=== PATIENT | female | born 1990 | race Caucasian/White ===

== ENCOUNTER 2019-03-12 16:51 | Inpatient (IN) ==
[2019-03-12] MEDS ORDERED: ADENOCARD IV ONE ×2 (17:15→21:00)
--- NOTE | 2019-03-12 17:38 | PROVIDER DOCUMENTATION ---
HPI-General Adult - General Chief Complaint: Palpitations Stated Complaint: HEART RACING Time Seen by Provider: 03/12/19 17:25 Source: patient Allergies/Adverse Reactions: Patient Allergies Allergy/AdvReac Type Severity Reaction Status Date / Time almond Allergy SHORTNESS Verified 03/12/19 17:33 OF BREATH Home Medications: Home Medication List Medication Instructions Recorded Confirmed Last Taken Type Fenofibric Acid (Choline) 135 mg PO DAILY 02/28/19 03/12/19 03/11/19 History [Fenofibric Acid] - History of Present Illness -Gen Adult Nature of Presenting Problems: Pt is a 28yo female who presents with palpitations for the past 2 days. She has no hx of SVT. She denied chest pain or shortness of breath. Location of Pain/Injury: reports: head Onset/Duration: reports: other (yesterday) Associated Symptoms: reports: other (palpations). denies: chest pain, shortness of breath Review of Systems - Adult - REVIEW OF SYSTEMS - ADULT Constitutional: reports: other (sweats) Eyes: denies: blurred vision Ears, Nose, Mouth & Throat: reports: throat pain Cardiovascular: reports: irregular heart rate Respiratory: denies: shortness of breath Gastrointestinal: reports: no symptoms reported. denies: abdominal pain Genitourinary: denies: dysuria Musculoskeletal: denies: back pain Neurological: reports: other (shakes) Psychiatric: reports: other (decreased attention) Endocrine: reports: excessive sweating Hematologic/Lymphatic: reports: other (no bleeding) Past History - Adult - PAST MEDICAL HISTORY-ADULT Review of Records: reports: Old Records Reviewed Major Childhood Illnesses: reports: history unknown Cardiovascular: reports: HTN, hyperlipidemia Respiratory: reports: denies history Gastrointestinal: reports: denies history Obstetrical/Gynecological: reports: denies history Genitourinary: reports: denies history Musculoskeletal: reports: denies history Neurological: reports: denies history Endocrine/Immune: reports: denies history Other Conditions: reports: denies history - PRIOR SURGERIES/PROCEDURES Surgical/Procedure History: reports: hysterectomy, BTL - PRIOR HOSPITALIZATIONS Prior Hospitalizations: reports: none - IMMUNIZATION STATUS Childhood Immunizations: See Nurse Assessment Flu Vaccine: See Nurse Assessment - FAMILY HISTORY Family History: HTN, other (CAD) - SOCIAL HISTORY Smoking: denies Substance Use: none/never Alcohol Use Frequency: never Physical Exam-General - PHYSICAL EXAM-ADULT Exam Limited by: Obesity Initial Vital Signs Reviewed: Yes - CONSTITUTIONAL General Appearance: appears well, alert, obese - EYES Eyes: negative: scleral icterus - HEAD, EARS, NOSE, MOUTH & THROAT HENMT: normocephalic/atraumatic, moist mucous membranes - NECK Neck: normal inspection - RESPIRATORY Respiratory: normal breath sounds - CARDIOVASCULAR Cardiovascular: tachycardia, other (1+ bilateral lower extremity edema) - GASTROINTESTINAL (ABDOMEN) Abdominal Exam: non tender, soft - SKIN Integumentary: normal color - NEUROLOGIC Neurologic: grossly normal - PSYCHIATRIC Psych/Mental Status: normal mood/affect Progress - PLAN OF CARE/RESULTS Progress/Plan/Lab Results: Vital Signs - 8 hr 03/12/19 17:30 Temperature 98.1 F Pulse Rate 224 H Respiratory Rate 20 Blood Pressure 162/84 O2 Sat by Pulse Oximetry 97 Original telemetry show tachycardia concerning for SVT. EKG at 17:13 showing SVT with PVCs. Patient had pads applied and had adenosine treatment x1 with 6mg IV push at approximately 17:13 with conversion noted immediately and repeat EKG noting sinus tachycardia at 17:16. The patient rhythm converted to sinus tachycardia with new rate of 119. The patient tolerated the procedure well, and IVF were also started. Result Diagrams: 03/12/19 17:17 03/12/19 17:17 - EKG 1 EKG Interpretation (*Must complete 3 of following elements*): Abnormal Rate: 219 Rhythm: SVT [place]: normal QRS: other (narrow 84) ST Wave: non-specific ST changes Comments: SVT 2 EKG Interpretation (*Must complete 3 of following elements*): Abnormal Rate: 119 Rhythm: Sinus tachycardia [place]: normal QRS: normal [place] Interval: normal ST Wave: normal Prior EKG Comparison: changes noted Comments: Improved from SVT to sinus tachycardia after adenosine Departure - Departure Date of Disposition Decision: 03/12/19 Time of Disposition Decision: 19:37 DIAGNOSIS: Supraventricular tachycardia Disposition: ADMITTED INPATIENT 09 Certified Medical Emergency: Emergent Condition: Good Referrals and Follow-Ups: Justin Thibodeaux Jr, MD [Primary Care Provider] - - Critical Care Note This patient required my direct & personal management of CC.: Yes Attestation - Physician/ KHARI Attestation Patient care was provided by Advanced Practice Provider:: No The physician spent face to face time with patient:: Yes Advanced Practice Provider documentation review:: Supervising physician onsite and consulted in the evaluation and care of this patient. The physician did have a face to face encounter with the patient.
[2019-03-12 18:18] LABS: BASO# 0.08 X1000 (0.0-0.2); BASO% 0.7 % (0.0-0.8); EOS# 0.15 X1000 (0.0-0.7); EOS% 1.2 % (0.0-10.0); HEMATOCRIT 42.6 % (37.0-47.0); HEMOGLOBIN 14.2 g/dL (12.0-16.0); IMM GRAN# 0.02 X1000 (0.0-0.04); IMM GRAN% 0.2 % (0.0-0.5); LYMPH# 4.22 X1000 (1.2-3.4); MCH 30.2 PG (27-31); MCHC 33.3 g/dL (33-37); MCV 90.6 FL (81-99); MONO# 0.82 X1000 (0.11-0.59); MONO% 6.8 % (1.7-9.3); MPV 8.7 FL (7.4-10.4); NEUT# 6.76 X1000 (1.4-6.5); NEUT% 56.1 % (42.2-75.2); PLT 491 X1000 (130-400); RDW 12.6 % (11.5-14.5); WBC 12.05 X1000 (4.8-10.8)
--- NOTE | 2019-03-12 18:27 | EKG Report ---
Test Performed on : 03/12/2019 5:16:20 PM Test Reason : tachycardia Blood Pressure : / mmHG Vent. Rate : 119 BPM Atrial Rate : 119 BPM P-R Int : 146 ms QRS Dur : 090 ms QT Int : 296 ms P-R-T Axes : 044 044 025 degrees QTc Int : 416 ms Sinus tachycardia. Otherwise normal ECG When compared with ECG of 12-MAR-2019 17:13, (Unconfirmed) premature ventricular complexes. are no longer present Vent. rate has decreased BY 100 BPM Non-specific change in ST segment in Inferior leads T wave inversion less evident in Inferior leads T wave inversion no longer evident in Lateral leads Unconfirmed Result
--- NOTE | 2019-03-12 18:29 | EKG Report ---
Test Performed on : 03/12/2019 5:13:54 PM Test Reason : tachycardia Blood Pressure : / mmHG Vent. Rate : 219 BPM Atrial Rate : 214 BPM P-R Int : 000 ms QRS Dur : 084 ms QT Int : 210 ms P-R-T Axes : 000 050 266 degrees QTc Int : 401 ms Supraventricular tachycardia. with occasional premature ventricular complexes. ST & T wave abnormality, consider inferior ischemia Abnormal ECG When compared with ECG of 28-FEB-2019 09:46, premature ventricular complexes. are now present Vent. rate has increased BY 144 BPM Non-specific change in ST segment in Inferior leads ST now depressed in Anterolateral leads T wave inversion now evident in Inferior leads T wave inversion now evident in Lateral leads Unconfirmed Result
[2019-03-12] MEDS ORDERED: NS 1,000 ML IV ONE (18:43)
[2019-03-12 18:52] LABS: AGAP 17; ALB/GLOB RATIO 1.5; ALBUMIN 4.4 g/dL (3.5-5.0); ALKALINE PHOSPHATASE 75 U/L (32-104); BUN 10 mg/dL (8-22); CALCIUM 9.8 mg/dL (8.8-10.2); CHLORIDE 99 mmol/L (98-107); COSMO 277; CREATININE 0.8 mg/dL (0.5-0.9); ESTIMATED GFR > 60; GLUCOSE 139 mg/dL (70-104); GOT 21 U/L (10-30); GPT 28 U/L (10-36); POTASSIUM 4.2 mmol/L (3.5-5.1); SODIUM 138 mmol/L (136-145); TCO2 22 mmol/L (25-35); TOTAL BILIRUBIN 0.37 mg/dL (0.20-1.00); TOTAL PROTEIN 7.4 g/dL (6.3-8.3)
[2019-03-12] MEDS ORDERED: 1/2 NS 1,000 ML IV ONE (19:55)
[2019-03-12] MEDS ORDERED: TYLENOL PO PRN (20:02)
[2019-03-12] MEDS ORDERED: ZOFRAN IV PRN (20:02)
[2019-03-12] MEDS: LOVENOX SUBQ SCH (20:34)
[2019-03-13 06:43] LABS: BASO# 0.05 X1000 (0.0-0.2); BASO% 0.6 % (0.0-0.8); EOS# 0.14 X1000 (0.0-0.7); EOS% 1.6 % (0.0-10.0); HEMATOCRIT 38.2 % (37.0-47.0); HEMOGLOBIN 12.5 g/dL (12.0-16.0); LYMPH# 3.14 X1000 (1.2-3.4); LYMPH% 34.8 % (20.5-51.1); MCH 29.9 PG (27-31); MCHC 32.7 g/dL (33-37); MCV 91.4 FL (81-99); MONO# 0.65 X1000 (0.11-0.59); MONO% 7.2 % (1.7-9.3); MPV 8.6 FL (7.4-10.4); NEUT# 5.04 X1000 (1.4-6.5); NEUT% 55.8 % (42.2-75.2); PLT 389 X1000 (130-400); RBC 4.18 XMIL (4.2-5.4); RDW 12.6 % (11.5-14.5); WBC 9.02 X1000 (4.8-10.8)
[2019-03-13 07:08] LABS: HEMOGLOBIN A1C 5.9 % (4.8-6.0)
--- NOTE | 2019-03-13 07:24 | Diag Imaging Result Doc PS360 ---
EXAM: CHEST-PORTABLE INDICATION: CP TECHNIQUE: One view COMPARISON: 06/12/2014 FINDINGS: The lungs are grossly clear. There is no discrete pleural fluid collection or pneumothorax. The cardiomediastinal silhouette and central vasculature are grossly unremarkable accounting for magnification from AP technique. IMPRESSION: No evidence of acute pathology by plain radiograph. Electronically signed by Parminder Bright 03/13/2019 7:21 AM
[2019-03-13 07:26] LABS: AGAP 13; ALB/GLOB RATIO 1.4; ALBUMIN 3.6 g/dL (3.5-5.0); ALKALINE PHOSPHATASE 60 U/L (32-104); BUN 13 mg/dL (8-22); CALCIUM 8.6 mg/dL (8.8-10.2); CHLORIDE 105 mmol/L (98-107); COSMO 278; CREATININE 0.6 mg/dL (0.5-0.9); ESTIMATED GFR > 60; GLUCOSE 100 mg/dL (70-104); GOT 14 U/L (10-30); GPT 20 U/L (10-36); MAGNESIUM 1.7 mg/dL (1.5-2.7); POTASSIUM 4.1 mmol/L (3.5-5.1); SODIUM 139 mmol/L (136-145); TCO2 21 mmol/L (25-35); TOTAL BILIRUBIN 0.65 mg/dL (0.20-1.00); TOTAL PROTEIN 6.2 g/dL (6.3-8.3)
--- NOTE | 2019-03-13 07:52 | EKG Report ---
Test Performed on : 03/13/2019 07:16:33 AM Test Reason : Palpitations, SVT Blood Pressure : / mmHG Vent. Rate : 073 BPM Atrial Rate : 073 BPM P-R Int : 134 ms QRS Dur : 090 ms QT Int : 426 ms P-R-T Axes : 043 045 050 degrees QTc Int : 469 ms Sinus rhythm. Normal ECG When compared with ECG of 12-MAR-2019 17:16, (Unconfirmed) Vent. rate has decreased BY 46 BPM Confirmed by Danette MOY, Nick Hui ([id number]) on 03/13/2019 9:10:08 AM
--- NOTE | 2019-03-13 08:08 | HISTORY AND PHYSICAL ---
CHIEF COMPLAINT: Palpitations. HISTORY OF PRESENT ILLNESS: A 28-year-old female with a past medical history of dyslipidemia and morbid obesity with a body mass index of 62.3. Recently also, she had a cystoscopic exam done due to hematuria. She presented to the emergency department with a chief complaint of palpitations that has been on and off since last Tuesday, 2 days ago, but today, basically the palpitation was constant, associated with sweating, but no chest pain, no headache, no blurry vision, no dizziness, no nausea, no vomiting, no diarrhea, no constipation. In the emergency department, this patient was found to be on supraventricular tachycardia. It is documented, heart rate that was over 200. She received a dose of adenosine 6 mg x1, and she converted back to sinus rhythm, and she started to feel better afterwards. Her blood pressure also was found to be elevated between 130s and 160s. As per the patient, she does not have any history of hypertension, but she does have prediabetes. The patient will be admitted for observation. She will be placed on telemetry. She is asymptomatic at this moment, and her rhythm is normal. I will get an echocardiogram and a new EKG in the morning. Cardiology Department will evaluate the patient in the morning as well. I will continue to monitor the blood pressure. I will get a hemoglobin A1c. TSH within normal limits. Mild leukocytosis, which is likely reactive. She has no symptoms of upper respiratory infection. No dysuria. No abdominal pain or diarrhea. REVIEW OF SYSTEMS: All of the 14 points of review of systems were reviewed, and all of them negative, except as per HPI. FAMILY HISTORY: Positive for diabetes, hypertension, dyslipidemia, and father with chronic obstructive pulmonary disease. PAST SURGICAL HISTORY: She had a cystoscopic exam with bilateral retrograde ureteral pyelograms on 03/01/2019. Also, she had a laparoscopic supracervical hysterectomy with bilateral salpingectomy on 08/11/2016 due to menorrhagia. She had a D and C and hysteroscopic thermal ablation at 90 degree Celsius with a 2-minute cool down due to menorrhagia that was done on 04/07/2016. On 10/28/2014, laparoscopic tubal cauterization and removal of Nexplanon. SOCIAL HISTORY: She does not smoke. She does not do drugs or drink alcohol. ALLERGIES: No known allergies. PAST MEDICAL HISTORY: Morbid obesity, dyslipidemia, prediabetes. PHYSICAL EXAMINATION: VITAL SIGNS: At the moment of my physical exam, the temperature was 98.6 degrees, pulse 87, respiratory rate 19 on the monitor, blood pressure 131/71, oxygen saturation 100% on 2 L of nasal cannula. HEENT: Head normocephalic. No trauma. PERRLA. NECK: Supple. No JVD. No masses. Central trachea. CHEST: Clear to auscultation. No wheezing. No rales. CARDIOVASCULAR: Regular rate and rhythm. ABDOMEN: Soft, protuberant, nontender, nondistended. No hepatosplenomegaly. EXTREMITIES: No edema, no clubbing, no cyanosis. NEUROLOGICAL: The patient is alert and oriented x3. No focal deficits. LABORATORY DATA: WBC 12, hemoglobin 14.2, hematocrit 42.6, platelets 491,000. Sodium 138, potassium 4.2, chloride 99, bicarbonate 22, BUN 10, creatinine 0.8, glucose 139, calcium 9.8. AST 21, ALT 28, alkaline phosphatase 75. Troponin negative x1. TSH 1.2. ASSESSMENT AND PLAN: 1. The patient presented with palpitations with supraventricular tachycardia, back to sinus rhythm after using adenosine x1. This patient will be admitted for observation. We will get an echocardiogram to evaluate valvular function as well. I will repeat an echocardiogram in the morning. I will get a new set of lab work. TSH within normal limits. Pending x-ray and magnesium level. 2. Dyslipidemia. Continue home medications. 3. Prediabetes. I will get a new hemoglobin A1c. We will just monitor. 4. Possible hypertension. As per the patient, she has never been diagnosed with hypertension, but her blood pressure has been in the 130s to 160s. I will monitor this patient closely, and I will add medications as needed. 5. Morbid obesity. Diet and exercise has been discussed. 6. Her primary doctor is Justin Thibodeaux. 7. Further recommendations pending hospital course. cc: MD Justin Reyes Jr, MD
--- NOTE | 2019-03-13 09:40 | PROGRESS NOTE ---
DATE: 03/13/2019 SUBJECTIVE: The patient says she is feeling better. She came in the hospital with fast heart rates since Tuesday, was given adenosine. She was in SVT. She has not had any problems since that time. She is getting an echocardiogram this morning. OBJECTIVE: Vital Signs: Blood pressure is 143/84, respirations 16, pulse 80, temp 99 degrees. HEENT: She is normocephalic. EOMS intact. PERRLA. Throat clear. Lungs: Clear to auscultation and percussion without rhonchi, rales, or wheezes. Heart: Now regular rate and rhythm without murmurs, gallops, or friction rubs but at one time her pulse rate was up to 224. Abdomen: Soft active bowel sounds. No organomegaly or tenderness. Neurological: Intact grossly. The patient is morbidly obese weighing 398 pounds. ASSESSMENT: 1. Supraventricular tachycardia. 2. Morbid obesity. PLAN: We will do workup for SVT, I have consulted Cardiology. cc: Justin Thibodeaux Jr, MD
[2019-03-13] MEDS: TRILIPIX PO SCH (10:21)
--- NOTE | 2019-03-13 15:43 | CONSULTATION ---
DATE OF CONSULTATION: 03/13/2019 IMPRESSIONS: 1. Paroxysmal supraventricular tachycardia. 2. Morbid obesity. 3. Hyperlipidemia. RECOMMENDATIONS: 1. Telemetry observation. 2. Follow-up echocardiography. 3. Initiate long-acting verapamil to try and suppress SVT. 4. Weight loss strongly encouraged. HISTORY: This 28-year-old white female with a past history of morbid obesity was admitted through the emergency room after several days of tachy palpitations and discovery of supraventricular tachycardia on ECG in the emergency room. She converted back to sinus rhythm after intravenous adenosine. She relates sporadic brief palpitations in the past, never more than just a few minutes at a time. The last 3 days she has had tachy palpitations ongoing. She has had some postural lightheadedness with this. Due to the persistence of her tachy palpitations, she finally came to the emergency room for evaluation and was found to be in SVT. She converted to sinus rhythm after a single dose of intravenous adenosine. There has been no chest pain. PAST MEDICAL HISTORY: 1. Morbid obesity. 2. Hyperlipidemia. 3. Prediabetes. ALLERGIES: She is allergic or intolerant of almond. MEDICATIONS PRIOR TO ADMISSION: As listed. PAST SURGICAL HISTORY: Cystoscopy with bilateral retrograde ureteral pyelograms, laparoscopic hysterectomy with bilateral salpingo-oophorectomy, laparoscopic tubal ligation, previous D C, and hysteroscopic thermal ablation. SOCIAL HISTORY: She is . She has 2 sons. She works at a local fast food restaurant. She does not smoke or use alcohol. FAMILY HISTORY: Negative for premature coronary disease. REVIEW OF SYSTEMS: Pulmonary: Noncontributory. Gastrointestinal: Noncontributory. Constitutional: Noncontributory. Remainder of review of systems noncontributory with 14 total systems reviewed. PHYSICAL EXAMINATION: General: Reveals a morbidly obese, adult female in no distress. Vital signs: Blood pressure 144/72, heart rate 81, oxygen saturation 99% on room air. HEENT: Extraocular movements appear intact. Mucous membranes moist. Neck: Supple without discernible jugular venous distention. There are no carotid bruits. Chest: Clear to auscultation bilaterally. Cardiac Exam: Reveals a regular rate and rhythm without appreciable murmur or gallop. Abdomen: Soft. Bowel sounds normal. Extremities: Without edema. Neurologic: Reveals her to be alert and fully oriented. Speech is fluent. She moves all 4 extremities equally well. PERTINENT DATA: Twelve-lead EKG obtained in the emergency room demonstrates supraventricular tachycardia with retrograde P-waves. Follow-up 12 lead EKG after intravenous adenosine demonstrates sinus rhythm and is within normal limits. LABORATORY DATA: Includes white blood cell count 9.02, hematocrit 38.2, hemoglobin 12.5, platelet count 389,000. Sodium 139, potassium 4.1, chloride 105, carbon dioxide 21, BUN 13, creatinine 0.6, glucose 100. Troponin T less than 0.01. Follow-up troponin T less than 0.01. cc: MD Justin Bacon Jr, MD
[2019-03-13] MEDS: ISOPTIN SR PO SCH (15:46)
--- NOTE | 2019-03-13 16:35 | ECHO REPORT ---
ORDER DATE: 03/12/2019 INTERPRETING PHYSICIAN: Dr. Chris Snow. ECHOCARDIOGRAPHIC MEASUREMENTS: 1. Interventricular septum: 1.1. 2. Left ventricular posterior wall: 1.1. 3. Diastolic diameter: 4.7. 4. Left atrium: 4. 5. Aortic root: 3.2. SUMMARY OF THE 2-DIMENSIONAL IMAGIN. Technically suboptimal study. 2. Very poor acoustic window. 3. Aortic valve leaflets are trileaflet. 4. Mitral valve was normal. 5. Tricuspid valve was normal. 6. Peak velocity across the aortic valve less than 2 meters per second. 7. There is no aortic stenosis or regurgitation. 8. There is trace to mild mitral regurgitation. 9. Trace to mild tricuspid regurgitation. 10. Peak velocity across the tricuspid valve less than 2 meters per second. 11. Pulmonic valve was normal. 12. There was trace pulmonary regurgitation. 13. Optison was used to assess left ventricular systolic function, normal left ventricular cavity size. Estimated ejection fraction of 65%. 14. There is no pericardial effusion or obvious intracardiac mass or thrombus seen. cc: MD Bob Phillips MD Roger H. Moss Jr, MD
[2019-03-13] MEDS: LOVENOX SUBQ SCH (22:21)
[2019-03-14 07:51] VITALS: BP 134/69
[2019-03-14] MEDS: ISOPTIN SR PO SCH (08:44)
[2019-03-14] MEDS: TRILIPIX PO SCH (08:45)
--- NOTE | 2019-03-14 09:59 | DISCHARGE SUMMARY ---
ADMISSION DATE: 03/12/2019 DISCHARGE DATE: 03/14/2019 FINAL DIAGNOSES: 1. Supraventricular tachycardia. 2. Morbid obesity. 3. Hyperlipidemia. CONSULTATIONS: Cardiology. PRESENT ILLNESS: The patient is a 28-year-old, white female who started having heart palpitations for the last 2 or 3 days before coming to the hospital. She still tells me now that she has had some incidences where her heart would run away for very short period of time, and she did not tell anybody about it. It would always goes away. This time it did not. She had a pulse rate of 224 at one time in the emergency room. She was given adenosine which broke this. She has stayed in a normal sinus rhythm since that time and has been started on verapamil SR 120 mg daily. Thyroid profiles were normal. Echocardiogram was normal. OBJECTIVE: Blood pressure is 134/69, respirations 20, pulse 76, temperature 98 degrees Fahrenheit. Weight is 398 pounds. HEENT: She is normocephalic. EOMS intact. PERRLA. Throat clear. Lungs: Clear to auscultation and percussion without rhonchi, rales, or wheezes. Heart: Now regular rate and rhythm without murmurs, gallops, friction rubs. Abdomen: Soft. Active bowel sounds. No organomegaly or tenderness. Neurologic: Exam intact grossly. Reflexes 1+ all. PLAN: We will discharge home with the Verapamil SR 120 mg daily. We will see back in the office within the next week for hospital recheck. Appreciate help from Cardiology Dr. Brown in particular. cc: Justin Thibodeaux Jr, MD
== END 2019-03-14 10:50 | disposition home or self-care (01) | DRG 309 ==
LOC: ED 16:51 → 4N 21:49 → SUATTDRO 21:49 → INTOOBSV 21:49 → OBSVTOIN 21:49 → 4N 03-13 01:37
PROVIDERS: ADMIT Emergency Medicine; ATTEND Emergency Medicine